=== PATIENT | female | born 2000 | race Caucasian/White ===

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

== ENCOUNTER → 2018-04-30 | Outpatient (CLI) | payer BC | LOC: M.MRI 08:06 | DX: M25.511 Pain in right shoulder (principal); G89.29 Other chronic pain; Z87.891 Personal history of nicotine dependence ==

== ENCOUNTER 2018-12-13 23:01 | Emergency (ER) | payer BC ==
[~2018-12-13] VITALS: Ht 172.7 cm; Wt 63.5 kg
[2018-12-13] MEDS ORDERED: birthcontrol (23:23)
[2018-12-14 00:30] VITALS: BP 109/60
[2018-12-14] MEDS ORDERED: ROBAXIN 750 MG750 M1 PO (00:30)
[2018-12-14] MEDS ORDERED: MEDROLDOSEPACK PO (00:30)
== END 2018-12-14 00:30 | disposition home or self-care (01) ==
LOC: M.ERS 23:01
DX: S16.1XXA Strain of muscle, fascia and tendon at neck level, initial encounter (principal); R51 Headache; Z77.22 Contact with and (suspected) exposure to environmental tobacco smoke (acute) (chronic); W18.39XA Other fall on same level, initial encounter; Y93.89 Activity, other specified; Y92.512 Supermarket, store or market as the place of occurrence of the external cause; Y99.8 Other external cause status